=== PATIENT | male | born 2000 | race Caucasian/White ===

== ENCOUNTER 2018-12-23 16:41 | Inpatient (IN) | payer OTHER ==
[~2018-12-23] VITALS: Ht 167.6 cm; Wt 76.2 kg
[2018-12-23] MEDS ORDERED: NICOTINE 21MG/24HR 1 EA TRANSDERMAL TD ONE (17:30)
[2018-12-23] MEDS ORDERED: CAFF200T PO (17:36)
[2018-12-23] MEDS ORDERED: MAALOX 30 ML SUSP *UDC PO PRN (19:15)
[2018-12-23] MEDS ORDERED: traZODone 50 MG TAB PO PRN (19:15)
[2018-12-23] MEDS ORDERED: LORazepam 1 MG TAB PO ONE (19:15)
[2018-12-23] MEDS ORDERED: ACETAMINOPHEN TAB 650MG DOSE (2X325MG) PO PRN (19:15)
[2018-12-23] MEDS ORDERED: MOM 30ML SUSPENSION UDC PO PRN (19:15)
[2018-12-24 02:49] VITALS: BP 135/78
[2018-12-24] MEDS: NICOTINE 21MG/24HR 1 EA TRANSDERMAL TD SCH (09:44)
--- NOTE | 2018-12-24 10:56 | MHHPEPDOC ---
General Date Of Admission: Dec 23, 2018 Legal Status: 9.39 Chief Complaint "I tried to OD on caffeine pills." History of Present Illness HISTORY OF THE PRESENT ILLNESS: Per ED patient is a 18 -year-old , AD, male, who presented as an ER after transfer from [place] after he attempted to overdose on caffeine pills. 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 After an argument with his girlfriend, pt consumed "160 caffeine pills in order to give myself a heart attack." During PT patient began to feel the effects and drove himself to [place] ED. After medical clearance pt was sent to [facility]. Pt has had previous episodes of attempted overdose. Pt has a history of Anxiety and Depression which he does not see any provider for. Pt has had 1 previous interaction with [facility] but felt it was a poor experience and won't return. When asked about current SI or intent to harm himself he said "not so much but I'd rather not be alive if that makes sense." Psychiatric Review of Systems Depression (2 or more weeks): depressed mood, decreased energy ("getting out of bed is hard in the morning"), difficulty concentrating ("I can do my work, it just makes everything harder."), suicidal thoughts ("If I wanted to I'd use a gun, but I just want to feel pain.") Julia (4 or more days of): denies Psychosis: denies PTSD: denies Anxiety: gen/non-specific anxiety ("I get stressed about everything"), stressor related anxiety ("I've had problems with my girlfriend") Anxiety/ 6 months or more of: restlessness, keyed up, difficulty concentrating, irritability, sleep disturbance Past Psychiatric History Previous Psychiatric Diagnosis: History of depression and Anxiety, ADHD at age 9-10. Previous Psychiatric Admissions: none Suicide Attempts: previous attempts at overdose with caffeine Psychiatric Follow-up: 1 interaction with [facility] but pt has no interest in returning Psychiatric medications: none currently. Previously treated with Vyvanse for ADHD. Past Medical History Medical Problems no significant past medical problems. Head Injury: No Seizures: No Hospitalizations: No Surgeries: No Family Medical/Psychiatric HX Medical Problems noncontributory Psychiatric Disorders: Yes (Father, Mother and Older sister deal with depression) Addiction: No Suicide Attemps/Completions: No Addiction History other (caffeine) Social History No history of abuse as a child. Born and raised [place], good childhood, 2 parent home, 1 older sister. Pt is currently in a relationship but claims to be having issues with his girlfriend regarding her Ex-girlfriend. Has a son 3y/o with his ex. Currently AD 1 year, E2, Works an [employer]. "Work is fine but the depression just kobe es doing everything harder." No history of drug or alcohol abuse. Currently lives in [place]. No legal problems. High school grad. Mental Status Examination General Appearance: well groomed, appears stated age, hospital scubs/clothing Build: thin Demeanor: preoccupied, guarded, very figety Eye Contact: fair Activity: agitated, anxious Behavior: cooperative, resistant (Pt's tone is mistrustful and defensive), agitated, restless, anhedonia ("I just feel depressed") Speech: clear, reg/rate,rhythm,volume Mood: depressed, anxious ("I get anxious over everything"), irritable Affect: constricted, flat, anxious Thought Process: logical/linear, depressed Thought Content (Delusions): none reported Thought Content (Other): preoccupied ("I just want to feel pain"), guilty Thought Content (Aggressive): none reported Perception (Hallucinations): none reported Perception (Other): none reported Cognition (Impairment of): none reported Cognition(Intelligence Est.): average Oriented: Oriented times three Insight: fair Judgment: Fair Psychosis: Denies Diagnoses 1. Major depressive disorder 2. Generalized Anxiety disorder 3. Substance abuse (caffeine) 4. ADHD per pt. A-FIB/CHADSVASC A-FIB History Current/History of A-Fib/PAF?: No Assessment Discussed pt's recent OD attempt with caffeine pills. Pt has had difficulties with his girlfriend talking with her ex regarding their upcoming plans for marriage. Upon learning she had been secretly texting with him this past month, patient took 160 caffeine pills. "I don't want to kill myself. If I did I would use a gun. I just wanted to fuck myself up, and caffeine does that. Nobody ever from caffeine" Pt has had 1 past attempt at Overdose 3 years ago using the same method. Pt has dealt with past episodes of depression during which time he loses energy, lacks focus, and feels worthless. He is only able to sleep 5 hours per night, but finds he can manage. "It just makes everything harder to do." He reports no past episodes of Julia, nor any symptoms of PTSD. Patient claims "to get anxious over everything." He had one panic attack many years ago, but ortiz sn't find that to be a problem. He does endorse generalized anxiety and admits he over thinks little things in his life. He is agreeable to start zoloft for JEIMY and vistaril 25mg q6hr prn anxiety, risks/side effects discussed. He strongly believes his history of ADHD to be the problem stating "I get bored with things fast" and "if I can just get on Vyvanse again, the lightbulb will go off and I'll be fine." However he is not interested in returning to [facility] out of fear "that it will ruin my career" b/c he was told he couldn't be on any ADHD med but now knows that mean ritalin or adderall but told by gluing crew leader Vyvanse would be ok as non-addictive and agree so with start for pt here. Despite attempt at OD, patient denies SI/HI. No history of drug abuse (besides caffeine), or alcohol abuse. Patient feels safe here. Initial Treatment Plan 1. Patient was admitted on a 9.39 status. 2. Complete history was obtained. 3. With patients permission, family will be contacted and database will be expanded. 4. Patients medication regimen will be reviewed and changed accordingly. 5. Patient will be provided with protected environment. 6. Patient will be treated with individual, group, and milieu therapies. 7. Patient will receive supportive psych-education. 8. Discharge planning will commence immediately. 9. Outpatient follow-up treatment will be strongly recommended. 10. The initial treatment plan will focus initially on: * Depression. * Risk for suicide. 11. strattera 40mg qam and 3pm, zoloft 25mg daily, vistaril 25mg q6hr prn anxiety ESTIMATED LENGTH OF STAY: 7-9 DAYS. TIME SPENT COUNSELING AND COORDINATING INITIAL CARE: 60 minutes. Vital Signs Vital Signs Date Time Temp Pulse Resp B/P (MAP) Pulse Ox O2 Delivery O2 Flow Rate FiO2 8/27/19 08:12 Room Air 12/24/18 02:49 97.0 76 16 135/78 (97) 99 Medications No Active Prescriptions or Reported Meds Allergies Coded Allergies: No Known Allergies (Verified Allergy, Unknown, 12/23/18) SUNIL URIARTE DO Dec 24, 2018 10:28 am
[2018-12-24] MEDS ORDERED: SERTRALINE HCL 25 MG TABLET PO ONE (12:45)
[2018-12-24] MEDS ORDERED: ATOMOXETINE HCL 40 MG CAP (STRATTERA) PO ONE (12:45)
[2018-12-24] MEDS ORDERED: hydrOXYzine 25 MG TAB PO PRN (12:45)
[2018-12-24] MEDS: ATOMOXETINE HCL 40 MG CAP (STRATTERA) PO SCH (17:34)
[2018-12-24 18:00] VITALS: BP 135/70
--- NOTE | 2018-12-24 22:18 | HPE ---
DATE OF ADMISSION: 12/23/2018 HISTORY OF THE PRESENT ILLNESS: Please refer to psychiatric history and evaluation for further details on this admission. This examination and history is intended for medical issues which may need treatment, followup, or consult on this 18-year-old male. ALLERGIES: No known allergies. PRIMARY CARE PROVIDER: Currently has none. SOCIAL HISTORY: He is single. He drinks once a month if that. Smoke: He uses vape. Recreational drug use: None. PAST MEDICAL HISTORY: Negative. PAST SURGICAL HISTORY: Negative. FAMILY HISTORY: Father age 44 of sepsis. Mother is alive and well. HOME MEDICATIONS: None. REVIEW OF SYSTEMS: Eleven-systems review was done and is unremarkable. The patient had no complaints. OBJECTIVE: A 18-year-old cooperative male in no acute distress. Height 66 inches, weight 76.2 kilograms, body mass index (BMI) 27.1. The patient is alert and oriented times three. Blood pressure 135/70, pulse 90, respirations 16, temperature 98.5, O2 sat 98% on room air. Pupils are equal and reactive to light. Extraocular movements intact. Cornea and sclerae clear. Conjunctivae is normal. No facial asymmetry. Pharynx: Tongue and gums pink and moist. Tongue is midline. Neck is supple without lymphadenopathy. No thyromegaly. No goiter. Carotids 2+ without bruits. Chest is clear to auscultation without wheeze or retractions. Heart is regular. Abdomen: Benign. Bowel sounds positive. Genital/Rectal: Not done. Extremities: Show equal strength, full range of motion. No cyanosis, clubbing or edema. Peripheral pulses equal and palpable bilaterally. Skin is warm and dry. IMPRESSION AND PLAN: Psychiatric plan per psychiatry. History of vaping. Nicotine patch offered. No acute medical issues. Edited 12/25/2018 erik GRADY
[2018-12-25 06:46] VITALS: BP 162/77
--- NOTE | 2018-12-25 09:08 | MHIPNPDOC ---
[facility] Progress Note Progress Note DATE OF SERVICE: 12/25/18 HISTORY: Per ED patient is a 18 -year-old , AD, male, who presented as an ER after transfer from [place] after he attempted to overdose on caffeine pills. 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 After an argument with his girlfriend, pt consumed "160 caffeine pills in order to give myself a heart attack." During PT patient began to feel the effects and drove himself to [place] ED. After medical clearance pt was sent to [facility]. Pt has had previous episodes of attempted overdose. Pt has a history of Anxiety and Depression which he does not see any provider for. Pt has had 1 previous interaction with [facility] but felt it was a poor experience and won't return. When asked about current SI or intent to harm himself he said "not so much but I'd rather not be alive if that makes sense." Discussed pt's recent OD attempt with caffeine pills. Pt has had difficulties with his girlfriend talking with her ex regarding their upcoming plans for marriage. Upon learning she had been secretly texting with him this past month, patient took 160 caffeine pills. "I don't want to kill myself. If I did I would use a gun. I just wanted to fuck myself up, and caffeine does that. Nobody ever from caffeine" Pt has had 1 past attempt at Overdose 3 years ago using the same method. Pt has dealt with past episodes of depression during which time he loses energy, lacks focus, and feels worthless. He is only able to sleep 5 hours per night, but finds he can manage. "It just makes everything harder to do." He reports no past episodes of Julia, nor any symptoms of PTSD. Patient claims "to get anxious over everything." He had one panic attack many years ago, but doesn't find that to be a problem. He does endorse generalized anxiety and admits he over thinks little things in his life. He is agreeable to start zoloft for JEIMY and vistaril 25mg q6hr prn anxiety, risks/side effects discussed. He strongly believes his history of ADHD to be the problem stating "I get bored with things fast" and "if I can just get on Vyvanse again, the lightbulb will go off and I'll be fine." However he is not interested in returning to [facility] out of fear "that it will ruin my career" b/c he was told he couldn't be on any ADHD med but now knows that mean ritalin or adderall but told by medical affairs leader María would be ok as non-addictive and agree so with start for pt here. Despite attempt at OD, patient denies SI/HI. No history of drug abuse (besides caffein e), or alcohol abuse. Patient feels safe here. VITAL SIGNS: See below. NEW TEST RESULTS: see below CURRENT MEDICATIONS: See below. MENTAL STATUS EXAMINATION: General Appearance: well groomed, appears stated age, hospital scrubs/clothing Build: thin Demeanor: cooperative, less preoccupied Eye Contact: fair Activity: less anxious Behavior: cooperative Speech: clear, reg/rate,rhythm,volume Mood: less depressed, less anxious Affect: less constricted, flat, anxious Thought Process: logical/linear, less depressed Thought Content (Delusions): none reported Thought Content (Other): improved, less preoccupied Thought Content (Aggressive): none reported Perception (Hallucinations): none reported Perception (Other): none reported Cognition (Impairment of): none reported Cognition(Intelligence Est.): average Oriented: Oriented times three Insight: fair Judgment: Fair Psychosis: Denies DIAGNOSES: 1. Major depressive disorder 2. Generalized Anxiety disorder 3. Substance abuse (caffeine) 4. ADHD per pt. ASSESSMENT:Pt seen and states that his mood is "a lot better" after starting his meds yesterday which he states he's tolerating well. He states his mood and anxiety are improved. States he slept well last night. He is attending groups and finding them helpful even though he admits he doesn't want to go but told to go as part of treatment plan and to learn coping skills for his anxiety, depression. He denies SI/HI, hallucinations, delusions. Pt feels safe here. MANAGEMENT PLAN: continue plan medications: strattera 40mg qam and 3pm zoloft 25mg daily vistaril 25mg q6hr prn anxiety TIME SPENT: 30 minutes. Vital Signs Vital Signs Date Time Temp Pulse Resp B/P (MAP) Pulse Ox O2 Delivery O2 Flow Rate FiO2 12/25/18 08:37 Room Air 12/25/18 06:46 98.3 66 16 162/77 (105) 12/24/18 02:49 99 Current Medications Current Medications Medications (Trade) Dose Ordered Sig/Yamel Route PRN Reason Start Time Stop Time Status Last Admin Dose Admin Acetaminophen (Tylenol Tab) 650 mg Q6HP PRN PO HEADACHE or DISCOMFORT 12/23/18 19:15 Al Hydrox/Mg Hydrox/Simethicone (Mylanta) 30 ml Q4HP PRN PO HEARTBURN/INDIGESTION 12/23/18 19:15 Atomoxetine HCl (Strattera (Atomoxetine)) 40 mg BID@09,17 PO 12/24/18 17:00 12/24/18 17:34 Home Med (Med Rec Complete!) ASDIRECTED XX 12/23/18 19:30 12/23/18 19:30 DC Hydroxyzine HCl (Atarax) 25 mg Q6HP PRN PO ANXIETY 12/24/18 12:45 Magnesium Hydroxide (Milk Of Magnesia) 30 ml DAILYPRN PRN PO CONSTIPATION 12/23/18 19:15 Nicotine (Nicoderm Cq 21mg) 1 patch DAILY TD 12/24/18 09:00 12/24/18 09:44 Sertraline HCl (Zoloft) 25 mg DAILY PO 12/25/18 09:00 Trazodone HCl (Desyrel) 50 mg QHSP PRN PO INSOMNIA 12/23/18 19:15 Allergies Coded Allergies: No Known Allergies (Verified Allergy, Unknown, 12/23/18) SUNIL URIARTE DO Dec 25, 2018 9:08 am
[2018-12-25] MEDS: SERTRALINE HCL 25 MG TABLET PO SCH (09:22)
[2018-12-25] MEDS: ATOMOXETINE HCL 40 MG CAP (STRATTERA) PO SCH ×2 (09:22→17:51)
[2018-12-25] MEDS: NICOTINE 21MG/24HR 1 EA TRANSDERMAL TD SCH (09:23)
[2018-12-25] MEDS: NICOTINE POLACRILEX 2 MG GUM PO PRN (17:52)
[2018-12-25 19:03] VITALS: BP 147/91
[2018-12-26 06:44] VITALS: BP 125/62
[2018-12-26] MEDS: SERTRALINE HCL 25 MG TABLET PO SCH (08:40)
[2018-12-26] MEDS: ATOMOXETINE HCL 40 MG CAP (STRATTERA) PO SCH (08:40)
[2018-12-26] MEDS: NICOTINE POLACRILEX 2 MG GUM PO PRN (08:41)
[2018-12-26 08:44] VITALS: BP 125/62
[2018-12-26] MEDS ORDERED: ATOM40CA PO (08:46)
[2018-12-26] MEDS ORDERED: SERT25TA21 PO (08:46)
[2018-12-26] MEDS ORDERED: HYDR-3363 PO (08:46)
[2018-12-26] MEDS ORDERED: TRAZ-252 PO (08:46)
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
== END 2018-12-26 11:40 | disposition home or self-care (01) | DRG 881 ==
LOC: M ED 16:41 → M ED INP 19:13 → M PSY 12-24 02:30
PROVIDERS: ADMIT Psychiatry & Neurology Psychiatry; ATTEND Psychiatry & Neurology Psychiatry
DX: F32.9 Major depressive disorder, single episode, unspecified (principal); F41.1 Generalized anxiety disorder; F90.9 Attention-deficit hyperactivity disorder, unspecified type; F17.200 Nicotine dependence, unspecified, uncomplicated

== ENCOUNTER 2019-04-14 16:11 | Emergency (ER) | payer OTHER ==
[~2019-04-14] VITALS: Ht 167.6 cm; Wt 81.8 kg
[~2019-04-14 16:11] MED LIST: ATOM40CA PO; CAFF200T PO; HYDR-3363 PO; SERT25TA21 PO; TRAZ-252 PO
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
[2019-04-14 17:34] VITALS: BP 132/90
== END 2019-04-14 17:35 | disposition home or self-care (01) ==
LOC: M ED 16:11
DX: S92.911A Unspecified fracture of right toe(s), initial encounter for closed fracture (principal); S60.418A Abrasion of other finger, initial encounter; W23.0XXA Caught, crushed, jammed, or pinched between moving objects, initial encounter; Y92.89 Other specified places as the place of occurrence of the external cause; F33.9 Major depressive disorder, recurrent, unspecified; F41.9 Anxiety disorder, unspecified; Z79.899 Other long term (current) drug therapy

== ENCOUNTER 2019-06-02 11:15 | Emergency (ER) | payer OTHER ==
[~2019-06-02] VITALS: Ht 167.6 cm; Wt 83.6 kg
--- NOTE | 2019-06-02 13:44 | REP ---
CT of the lumbar spine: Axial images are acquired helical scanning and a reformatted sagittal coronal projections. Vertebral body heights, interspacing alignment are normal. There are no compression deformities. There is no listhesis. There are no posterior element fractures. The paravertebral soft tissues are unremarkable. Impression: No fracture or listhesis. Electronically Signed by Beck Alejo MD 06/02/2019 01:35 P
[2019-06-02 14:08] VITALS: BP 125/69
--- NOTE | 2019-06-02 15:17 | REP ---
CT of the thoracic spine: Vertebral body heights, interspacing alignment are normal. There are no compression deformities. There is no listhesis. There are no posterior element fractures. The paravertebral soft tissues are unremarkable. There are occasional Schmorl's nodes within vertebral endplates as it is the incidental finding. Impression: No fracture or listhesis. Electronically Signed by Beck Alejo MD 06/02/2019 03:09 P
== END 2019-06-02 14:09 | disposition home or self-care (01) ==
LOC: M ED 11:15
DX: S23.3XXA Sprain of ligaments of thoracic spine, initial encounter (principal); S33.5XXA Sprain of ligaments of lumbar spine, initial encounter; V49.40XA Driver injured in collision with unspecified motor vehicles in traffic accident, initial encounter; F41.9 Anxiety disorder, unspecified; F33.9 Major depressive disorder, recurrent, unspecified; F17.290 Nicotine dependence, other tobacco product, uncomplicated; Z79.899 Other long term (current) drug therapy

== ENCOUNTER 2020-01-20 20:00 | Emergency (ER) | payer OTHER ==
[~2020-01-20] VITALS: Ht 172.7 cm; Wt 91.3 kg
[2020-01-20 20:00] VITALS: BP 143/82
[~2020-01-20 20:00] MED LIST changes: -ATOM40CA PO; +ATOM40CA16 PO
[2020-01-20] MEDS ORDERED: LIDOCAINE 2% MDV 20ML VIAL SC ONE (21:00)
== END 2020-01-20 21:22 | disposition home or self-care (01) ==
LOC: M ED 20:00
DX: S61.210A Laceration without foreign body of right index finger without damage to nail, initial encounter (principal); W26.0XXA Contact with knife, initial encounter; Y93.G3 Activity, cooking and baking; Y92.000 Kitchen of unspecified non-institutional (private) residence as the place of occurrence of the external cause; Y99.9 Unspecified external cause status

== ENCOUNTER 2020-02-22 00:07 | Emergency (ER) | payer OTHER ==
[~2020-02-22] VITALS: Ht 172.7 cm; Wt 77.3 kg
[2020-02-22] MEDS ORDERED: KETOROLAC 30 MG/ML 1ML VIAL IV ONE (01:00)
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
[2020-02-22 02:20] VITALS: BP 140/86
== END 2020-02-22 02:20 | disposition home or self-care (01) ==
LOC: M ED 00:07
DX: M54.5 Low back pain (principal); S01.511A Laceration without foreign body of lip, initial encounter; V47.5XXA Car driver injured in collision with fixed or stationary object in traffic accident, initial encounter; Y92.019 Unspecified place in single-family (private) house as the place of occurrence of the external cause
CPT/HCPCS: 70450; 72125; 72131; 96374; 99284; J1885